=== PATIENT | female | born 1995 | race Caucasian/White ===

== ENCOUNTER 2016-12-18 18:07 | Emergency (ER) | payer BC, MEDICAID, OTHER ==
[~2016-12-18] VITALS: Ht 167.6 cm; Wt 66.5 kg
[~2016-12-18 18:07] MED LIST: IBUP200C PO
[2016-12-18 18:48] VITALS: Ht 167.6 cm; Wt 66.5 kg
[2016-12-18] MEDS ORDERED: BEN25 PO (19:39)
[2016-12-18] MEDS ORDERED: ELIM TOP (19:39)
[2016-12-18] MEDS ORDERED: KENC1 TOP (19:39)
--- NOTE | 2016-12-19 01:34 | ERD ---
ER Documentation Chief Complaint Date/Time DATE: 12/19/16 TIME: 01:30 Chief Complaint rash x 1 day HPI 21-year-old female with no significant past medical history presents to the ED complaining of a rash that started yesterday. 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 Reports that they were taking care of the same patient however the patient did not have any rashes. States that she is itchy all over her body. Any new use use of soaps, detergents, lotions. Denies eating any new foods or exposure to pets or insects. Denies any fever, chills, chest pain, shortness of breath, weakness, headache, nausea, vomiting. ROS All systems reviewed and are negative except as per history of present illness. Medications Home Meds Active Scripts Diphenhydramine Hcl* (Benadryl*) 25 Mg Cap, 25 MG PO Q6, #30 CAP Prov:YESENIA BENÍTEZ-Anitha 12/18/16 Triamcinolone Acetonide (Triamcinolone Acetonide) 0.1% - 15 Gm Cream.gm., 1 APPLIC TOP BID, #1 TUB Prov:YEESNIA BENÍTEZ PA-C 12/18/16 Permethrin* (Elimite*) 5% Cr, 1 APPLIC TOP ONCE, #1 TUB Prov:YESENIA BENÍTEZ PA-C 12/18/16 Ibuprofen* (Ibuprofen*) 200 Mg Capsule, 200 MG PO Q8 for PAIN LEVEL 1-5 for 10 Days, CAP Prov:KENJI MAC 05/17/15 Allergies Allergies: Coded Allergies: No Known Allergy (Unverified , 05/17/15) PMhx/Soc Hx Alcohol Use: No Hx Substance Use: No Hx Tobacco Use: No Physical Exam Vitals Vital Signs Date Time Temp Pulse Resp B/P Pulse Ox O2 Delivery O2 Flow Rate FiO2 12/18/16 18:48 98.1 77 18 108/70 99 Physical Exam Const: Icr-xni-rwamqolkw, well-nourished. In no acute distress. Head: Atraumatic, normocephalic Eyes: Normal Conjunctiva without injection. No purulent discharge. PERRL. EOMI ENT: Normal external ear. Ear canal without erythema. Tympanic membrane pearly diallo without effusion or bulging. Nasal canal clear with normal turbinates. Moist oropharynx without tonsillar exudates. Non-erythematous pharynx. Uvula midline. No drooling. No trismus. Neck: Full range of motion. No meningismus. No cervical lymphadenopathy. Resp: Clear to auscultation bilaterally. No wheezing, rhonchi, rales, or crackles. No accessory muscle use. No retractions. Cardio: Regular rate and rhythm. No murmurs, rubs or gallops. Abd: Soft, non tender, non distended. Normal bowel sounds. No palpable masses. No rebound tenderness. No guarding. Skin: No petechiae, purpura. Linear red streaks secondary to scratching the rashes noted on the anterior chest, torso region. No vesicles, bleeding, purulent discharge, fluctuance, induration noted. Back: No midline tenderness. No CVA tenderness. Ext: No cyanosis, or edema. Neur: Awake and alert. Psych: Normal Mood and Affect Procedures/MDM This is a 21-year-old female with no significant past medical history presents the ED complaining of a rash that started 1 day ago. Patient is afebrile and nontoxic-appearing. Patient has normal vital signs. Patient's symptoms could be consistent with a rash of unknown etiology versus scabies. Patient will be given a prescription for triamcinolone, permethrin, Benadryl. Other differentials include allergic contact dermatitis, urticaria, insect bites, cutaneous candidiasis, eczema, tinea infection, psoriasis. Low suspicion for SJS/TEN, erythema multiforme,sepsis, cellulitis, necrotizing facitis, or other emergent conditions. Follow up with primary care physician in 1-2 days. Instructed patient to return to the ED sooner for any worsening symptoms. Patient's questions were answered. Patient understood and agreed with discharge plan. Patient discharged stable. Departure Diagnosis: Primary Impression: Rash and other nonspecific skin eruption Condition: Stable Patient Instructions: Self-Care for Skin Rashes, Scabies Referrals: COMMUNITY CLINICS YOU HAVE RECEIVED A MEDICAL SCREENING EXAM AND THE RESULTS INDICATE THAT YOU DO NOT HAVE A CONDITION THAT REQUIRES URGENT TREATMENT IN THE EMERGENCY DEPARTMENT. FURTHER EVALUATION AND TREATMENT OF YOUR CONDITION CAN WAIT UNTIL YOU ARE SEEN IN YOUR DOCTORS OFFICE WITHIN THE NEXT 1-2 DAYS. IT IS YOUR RESPONSIBILITY TO MAKE AN APPOINTMENT FOR FOLOW-UP CARE. IF YOU HAVE A PRIMARY DOCTOR --you should call your primary doctor and schedule an appointment IF YOU DO NOT HAVE A PRIMARY DOCTOR YOU CAN CALL OUR PHYSICIAN REFERRAL HOTLINE AT IF YOU CAN NOT AFFORD TO SEE A PHYSICIAN YOU CAN CHOSE FROM THE FOLLOWING [facility] [address] [facility] [address] [facility] [address] [facility] [address] [facility] [address] [facility] [facility] [address] [facility]. [facility] YOU HAVE RECEIVED A MEDICAL SCREENING EXAM AND THE RESULTS INDICATE THAT YOU DO NOT HAVE A CONDITION THAT REQUIRES URGENT TREATMENT IN THE EMERGENCY DEPARTMENT. FURTHER EVALUATION AND TREATMENT OF YOUR CONDITION CAN WAIT UNTIL YOU ARE SEEN IN YOUR DOCTORS OFFICE WITHIN THE NEXT 1-2 DAYS. IT IS YOUR RESPONSIBILITY TO MAKE AN APPOINTMENT FOR FOLOW-UP CARE. IF YOU HAVE A PRIMARY DOCTOR --you should call your primary doctor and schedule and appointment IF YOU DO NOT HAVE A PRIMARY DOCTOR YOU CAN CALL OUR PHYSICIAN REFERRAL HOTLINE AT . IF YOU CAN NOT AFFORD TO SEE A PHYSICIAN YOU CAN CHOSE FROM THE FOLLOWING [facility]: [facility] [address] [place] [address] [facility] [address] [place] [address] [facility] [address] [place] [address] [facility] Additional Instructions: FOLLOW UP WITH YOUR PRIMARY CARE PHYSICIAN TOMORROW.Return to this facility if you are not improving as expected. YESENIA BENÍTEZ PA-C Dec 19, 2016 01:34
== END 2016-12-18 19:39 | disposition home or self-care (01) ==
LOC: E/R 18:07
DX: R21 Rash and other nonspecific skin eruption (principal)
CPT/HCPCS: 99283

== ENCOUNTER 2017-02-26 07:09 | Emergency (ER) | payer SELFPAY ==
[~2017-02-26] VITALS: Ht 167.6 cm; Wt 67.5 kg
[~2017-02-26 07:09] MED LIST changes: +BEN25 PO; +ELIM TOP; +KENC1 TOP
[2017-02-26 07:13] VITALS: Ht 167.6 cm; Wt 67.5 kg
[2017-02-26] MEDS ORDERED: AMO500 PO (07:21)
--- NOTE | 2017-02-26 07:24 | ERD ---
ER Documentation Chief Complaint Date/Time DATE: 02/26/17 TIME: 07:[address] x 5 days HPI 21-year-old female presents complaining of sore throat that began about 4-5 days ago. She states she had a fever yesterday and she has been taking Tylenol and DayQuil. She has also used a throat spray but it is not helping. Also admits to mild dry cough. She is tolerating oral intake but has mild to moderate pain with swallowing. ROS All systems reviewed and are negative except as per history of present illness. Medications Home Meds Active Scripts Amoxicillin* (Amoxicillin*) 500 Mg Cap, 500 MG PO BID for 7 Days, CAP Prov:GREG WHITTAKER PA-C 02/26/17 Diphenhydramine Hcl* (Benadryl*) 25 Mg Cap, 25 MG PO Q6, #30 CAP Prov:YESENIA BENÍTEZ PA-C 12/18/16 Triamcinolone Acetonide (Triamcinolone Acetonide) 0.1% - 15 Gm Cream.gm., 1 APPLIC TOP BID, #1 TUB Prov:YESENIA BENÍTEZ PA-C 12/18/16 Permethrin* (Elimite*) 5% Cr, 1 APPLIC TOP ONCE, #1 TUB Prov:YESENIA BENÍTEZ PA-C 12/18/16 Ibuprofen* (Ibuprofen*) 200 Mg Capsule, 200 MG PO Q8 for PAIN LEVEL 1-5 for 10 Days, CAP Prov:KENJI MAC 05/17/15 Allergies Allergies: Coded Allergies: No Known Allergy (Unverified , 05/17/15) PMhx/Soc Hx Alcohol Use: No Hx Substance Use: No Hx Tobacco Use: No FmHx Family History: No diabetes Physical Exam Vitals Vital Signs Date Time Temp Pulse Resp B/P Pulse Ox O2 Delivery O2 Flow Rate FiO2 02/26/17 07:13 97.8 73 18 118/66 100 Physical Exam General: well developed, well nourished, alert, nontoxic, no distress Head: normocephalic, atraumatic Eyes: PERRL, normal conjunctiva Neck: Supple, nontender, no lymphadenopathy, no midline tenderness Ears: no tenderness over mastoids bilaterally, TMs nonerythematous, no exudates in canal Oropharynx: Mild bilateral tonsilar erythema, no edema, uvula midline, no exudates, no kissing tonsils, no drooling Respiratory: Clear to auscaultation bilaterally, speaks in full sentences, no use of accesory muscles or labored breathing, no rales, ronchi, or wheezing Cardiovascular: RRR, No murmurs Procedures/MDM Patient presents with pharyngitis. Vitals are fine and she is tolerating oral intake. I doubt peritonsillar abscess. She is already tried several over-the- counter medications which have not helped. She was given a prescription for amoxicillin. Recommended this patient follow up with her primary care doctor within 48 hours or return to the emergency room for any worsening of symptoms. However this time I do believe there is suitable for outpatient management. I answered all their questions and they agreed with the plan and were discharged home. Departure Diagnosis: Primary Impression: Pharyngitis Condition: Stable Patient Instructions: Pharyngitis, Strep (Presumed) Additional Instructions: Call your primary care doctor TOMORROW for an appointment during the next 1-2 days.See the doctor sooner or return here if your condition worsens before your appointment time. GREG WHITTAKER PA-C February 26, 2017 07:24
== END 2017-02-26 07:26 | disposition home or self-care (01) ==
LOC: FTE 07:09
DX: J02.9 Acute pharyngitis, unspecified (principal)
CPT/HCPCS: 99283

== ENCOUNTER 2018-07-21 17:20 | Emergency (ER) | END 2018-07-21 22:30 | disposition home or self-care (01) ==